=== PATIENT | male | born 1995 | race Caucasian/White ===

== ENCOUNTER 2017-09-19 16:17 | Emergency (ER) | payer BC ==
[2017-09-19] MEDS ORDERED: KETOROLAC 30 MG/ML 1 ML VIAL IVP STA (17:49)
[2017-09-19] MEDS ORDERED: RX INFO: IV CONTRAST WAS GIVEN 1 EACH MISC MISCELLANE PRN (17:49)
[2017-09-19] MEDS ORDERED: MORPHINE SULFATE 4 MG/ML SYRINGE IVP STA (17:49)
[2017-09-19] MEDS ORDERED: SODIUM CHLORIDE 0.9% 1,000 ML IV ONE (17:49)
--- NOTE | 2017-09-19 17:54 | ED ---
Nausea/Vomiting/Diarrhea HPI - General Chief complaint: Nausea/Vomiting/Diarrhea Stated complaint: Fever/103/Weak Time Seen by Provider: 09/19/17 17:07 Source: patient Mode of arrival: wheelchair Limitations: no limitations - History of Present Illness Initial comments: 22-year-old male with a history of ulcerative colitis and cardiomyopathy presenting for evaluation of left lower quadrant abdominal pain with nausea vomiting and diarrhea. He states that the fever started today however the nausea and vomiting has been present for the last couple days. He says the abdominal pain is to the left lower quadrant with radiation across the lower abdomen rated at an 8 out of 10 and described as dull and achy. Says it improved when he is sitting up with his knees raised and is worse with movement. Diagnosed with ulcerative colitis about a year ago and his GI specialist is Dr. Pelletier. Currently taking Humira. - Related Data Home Medications Medication Instructions Recorded Confirmed Adalimumab [Humira Pen] 40 mg SQ [id number] 09/19/17 09/19/17 Calcium Carbonate 500 mg PO DAILY 09/19/17 09/19/17 Carvedilol [Coreg] 12.5 mg PO BID 09/19/17 09/19/17 Cholecalciferol (Vitamin D3) 2,000 unit PO DAILY 09/19/17 09/19/17 [Vitamin D3] Lisinopril [Prinivil] 5 mg PO BID 09/19/17 09/19/17 Previous Rx's Medication Instructions Recorded Ciprofloxacin HCl [Cipro] 500 mg PO Q12HR #14 tablet 09/19/17 HYDROcodone/APAP 5-325MG [Spencer 1 - 2 tab PO Q6HR PRN #14 tab 09/19/17 5-325] metroNIDAZOLE [Flagyl] 500 mg PO Q8HR #21 tab 09/19/17 Allergies Allergy/AdvReac Type Severity Reaction Status Date / Time No Known Allergies Allergy Verified 09/19/17 17:10 Review of Systems ROS Statement: Those systems with pertinent positive or pertinent negative responses have been documented in the HPI. ROS Other: All systems not noted in ROS Statement are negative. Constitutional: Reports: fever. Denies: chills, weakness Eyes: Denies: eye pain, vision change ENT: Denies: ear pain, throat pain Respiratory: Denies: cough, dyspnea Cardiovascular: Denies: chest pain, palpitations Endocrine: Denies: fatigue, polydipsia, polyuria Gastrointestinal: Reports: abdominal pain, diarrhea. Denies: nausea, vomiting, constipation, hematemesis, melena, hematochezia Genitourinary: Denies: urgency, dysuria Musculoskeletal: Denies: back pain, arthralgia, myalgia Skin: Denies: rash, lesions Neurological: Reports: headache. Denies: weakness Psychiatric: Denies: anxiety, depression Hematological/Lymphatic: Denies: easy bleeding, easy bruising Past Medical History Additional Past Medical History / Comment(s): colitis, cardiomyopathy History of Any Multi-Drug Resistant Organisms: None Reported Past Surgical History: No Surgical Hx Reported Past Psychological History: No Psychological Hx Reported Smoking Status: Never smoker Past Alcohol Use History: None Reported Past Drug Use History: None Reported General Exam Limitations: no limitations General appearance: alert, in no apparent distress Head exam: Present: atraumatic, normocephalic, normal inspection Eye exam: Present: normal appearance, PERRL, EOMI. Absent: scleral icterus, conjunctival injection, periorbital swelling ENT exam: Present: normal exam, mucous membranes moist Neck exam: Present: normal inspection. Absent: tenderness, meningismus, lymphadenopathy Respiratory exam: Present: normal lung sounds bilaterally. Absent: respiratory distress, wheezes, rales, rhonchi, stridor Cardiovascular Exam: Present: normal rhythm, tachycardia GI/Abdominal exam: Present: soft, tenderness (Left lower quadrant and right lower quadrant as well as suprapubic). Absent: distended, guarding, rebound, rigid Rectal exam: Present: deferred Extremities exam: Present: normal inspection, full ROM, normal capillary refill. Absent: tenderness, pedal edema, joint swelling, calf tenderness Back exam: Present: normal inspection, full ROM Neurological exam: Present: alert, oriented X3, CN II-XII intact Psychiatric exam: Present: normal affect, normal mood Skin exam: Present: warm, intact, normal color, diaphoretic (Minimally). Absent : rash Course Vital Signs 09/19/17 09/19/17 09/19/17 16:21 18:48 20:23 Temperature 100.7 F H 101.8 F H 98.2 F Pulse Rate 101 H 95 71 Respiratory 20 18 18 Rate Blood Pressure 101/62 100/57 O2 Sat by Pulse 98 97 97 Oximetry Medical Decision Making - Medical Decision Making 22-year-old male with history of ulcerative colitis presenting for evaluation of left lower quadrant abdominal pain with associated nausea vomiting and diarrhea. On physical examination he is only mildly diaphoretic and has tenderness to palpation of left lower quadrant without peritoneal signs of guarding, rigidity, or rebound. Mildly febrile as well. Remainder of exam is benign. Concern for ulcerative colitis flareup versus other intra-abdominal etiology. We'll provide IV fluids, pain control, Tylenol for fever, and obtain labs and CT abdomen and pelvis. Labs revealed a mild leukocytosis and electrolyte abnormalities. There is also an increase in Cr not consistent with TERI. CT abdomen showed right sided colitis but no abscess or appendicitis. Pt reevaluated and has marked improvement in symptoms. Informed of all results and agreed with plan to discharge home. Advised to follow up with PCP and GI specialist. Further given return instructions. Pt acknowledged an understanding of all information provided and agreed with this plan of care. - Lab Data Result diagrams: 09/19/17 18:08 09/19/17 18:08 Lab Results 09/19/17 09/19/17 Range/Units 18:08 18:08 WBC 13.6 H (3.8-10.6) k/uL RBC 4.65 (4.30-5.90) m/uL Hgb 10.5 L (13.0-17.5) gm/dL Hct 34.0 L (39.0-53.0) % MCV 73.1 L (80.0-100.0) fL MCH 22.6 L (25.0-35.0) pg MCHC 30.9 L (31.0-37.0) g/dL RDW 13.8 (11.5-15.5) % Plt Count 312 (150-450) k/uL Neutrophils % Not Reportable Neutrophils % (Manual) 53 % Band Neutrophils % 23 % Lymphocytes % Not Reportable Lymphocytes % (Manual) 12 % Monocytes % Not Reportable Monocytes % (Manual) 11 % Eosinophils % Not Reportable Basophils % Not Reportable Metamyelocytes % 1 % Neutrophils # Not Reportable Neutrophils # (Manual) 10.30 H (1.3-7.7) k/uL Lymphocytes # Not Reportable Lymphocytes # (Manual) 1.63 (1.0-4.8) k/uL Monocytes # Not Reportable Monocytes # (Manual) 1.50 H (0-1.0) k/uL Eosinophils # Not Reportable Basophils # Not Reportable Metamyelocytes # (Man) 0.14 H (0) k/uL Nucleated RBCs 0 (0-0) /100 WBC Polychromasia Present Hypochromasia Slight Microcytosis Slight ESR 91 H (0-15) mm/hr Sodium 130 L (137-145) mmol/L Potassium 4.2 (3.5-5.1) mmol/L Chloride 95 L (98-107) mmol/L Carbon Dioxide 20 L (22-30) mmol/L Anion Gap 15 mmol/L BUN 16 (9-20) mg/dL Creatinine 1.30 H (0.66-1.25) mg/dL Est GFR (MDRD) Af Amer >60 (>60 ml/min/1.73 sqM) Est GFR (MDRD) Non-Af >60 (>60 ml/min/1.73 sqM) Glucose 101 H (74-99) mg/dL Calcium 8.5 (8.4-10.2) mg/dL C-Reactive Protein 251.0 H (<10.0) mg/L Disposition Clinical Impression: Colitis, Diarrhea, Leukocytosis, Hyponatremia Disposition: HOME SELF-CARE Condition: Stable Instructions: Ulcerative Colitis (ED), Colitis (ED) Additional Instructions: Please use medication as discussed. Please follow up with family doctor if symptoms have not improved over the next two days. Please return to the emergency room if your symptoms increase or worsen or for any other concerns. Prescriptions: Ciprofloxacin HCl [Cipro] 500 mg PO Q12HR #14 tablet HYDROcodone/APAP 5-325MG [Spencer 5-325] 1 - 2 tab PO Q6HR PRN #14 tab PRN Reason: Analgesia metroNIDAZOLE [Flagyl] 500 mg PO Q8HR #21 tab Referrals: Princess Dalton DO [Primary Care Provider] - 1-2 days Time of Disposition: 20:07
[2017-09-19] MEDS ORDERED: ACETAMINOPHEN TAB 325 MG TAB PO STA (18:16)
[2017-09-19 18:29] LABS: CHCM 31.5; HDW 2.83; HGB 10.5 gm/dL (13.0-17.5); Hypochromasia Slight; Immature Gran Flag Slight; MCH 22.6 pg (25.0-35.0); MCHC 30.9 g/dL (31.0-37.0); MCV 73.1 fL (80.0-100.0); Mean Platelet Volume 6.7; Microcytosis Slight; RBC 4.65 m/uL (4.30-5.90); RDW 13.8 % (11.5-15.5); WBC 13.6 k/uL (3.8-10.6); WBC (Perox) 12.28
[2017-09-19 18:33] LABS: Anion Gap 15 mmol/L; Blood Urea Nitrogen 16 mg/dL (9-20); Calcium 8.5 mg/dL (8.4-10.2); Carbon Dioxide 20 mmol/L (22-30); Chloride 95 mmol/L (98-107); Glucose 101 mg/dL (74-99); Non-African American GFR(MDRD) >60 (>60 ml/min/1.73 sqM); Potassium 4.2 mmol/L (3.5-5.1); Sodium 130 mmol/L (137-145)
[2017-09-19 18:49] VITALS: BP 100/57; RESP 18
[2017-09-19 19:12] LABS: Erythrocyte Sedimentation Rate 91 mm/hr (0-15)
[2017-09-19 19:14] LABS: Add Differential Manual Differential
[2017-09-19 19:16] LABS: Band Neutrophils % 23 %; Metamyelocytes % 1 %; Nucleated Red Blood Cells 0 /100 WBC (0-0); Polychromasia Present; Total Cells Counted 100
--- NOTE | 2017-09-19 19:28 | CT ---
EXAMINATION TYPE: CT abdomen pelvis w con DATE OF EXAM: 09/19/2017 COMPARISON: NONE HISTORY: Abdominal pain and fever. CT DLP: 663.1 mGycm Automated exposure control for dose reduction was used. TECHNIQUE: Helical acquisition of images was performed from the lung bases through the pelvis. CONTRAST: Performed without Oral Contrast and with IV Contrast, patient injected with 100 mL of Omnipaque 300. FINDINGS: The lung bases are clear. There is no pleural effusion. Liver spleen pancreas gallbladder appear norm al. Bile ducts are not dilated. There is no adrenal mass. Kidneys show satisfactory contrast opacific ation. There is no hydronephrosis. There is no retroperitoneal adenopathy. There is moderate fluid in the entire large bowel. There is mild wall thickening involving the hepatic flexure and ascending co karey. There is no ascites. There is no free air. There is increased density in the dependent cecum diane t could be old barium. Small bowel appears normal. Bladder distends smoothly. There is no sign of a pelvic mass. There is no sign of appendicitis. There is a small appendicolith but no appendiceal thickening. The bony structures are intact. IMPRESSION: THERE IS FLUID IN THE LARGE BOWEL CONSISTENT WITH DIARRHEA. MILD WALL THICKENING OF THE RIGHT colon I S CONSISTENT WITH NONSPECIFIC COLITIS. NO EVIDENCE OF APPENDICITIS. NO EVIDENCE OF ABSCESS.
[2017-09-19 20:25] VITALS: PULSE 71; TEMP 98.2
== END 2017-09-19 20:24 | disposition home or self-care (01) ==
LOC: EC 16:17
DX: K52.9 Noninfective gastroenteritis and colitis, unspecified (principal); D72.829 Elevated white blood cell count, unspecified; E87.1 Hypo-osmolality and hyponatremia; R11.2 Nausea with vomiting, unspecified; Z79.899 Other long term (current) drug therapy
CPT/HCPCS: 36415; 74177; 80048; 85025; 85652; 86140; 96361; 96374; 96375; 99284